=== PATIENT | female | born 1960 | race Caucasian/White ===

== ENCOUNTER 2025-05-17 07:23 | Emergency (ER) | payer MEDICARE, MEDICAID ==
[~2025-05-17] VITALS: Ht 172.7 cm; Wt 57.9 kg
[2025-05-17 07:29] VITALS: TEMP 98.1
--- NOTE | 2025-05-17 07:53 | Physician Documentation ---
History of Present Illness Chief Complaint: Abdominal Pain Stated Complaint: ABD PAIN Time Seen by MD: 07:52 HPI 65-year-old female presenting with left lower quadrant pain She tells me that for the past couple of days she has been having pain in her left lower abdomen. She states it is dull and achy, but sometimes more sharp. She thought she was constipated so she took some prunes then had a loose stool with no improvement. She did feel slightly warm. No definite fevers or chills. No nausea or vomiting. No upper abdominal pain or right-sided abdominal pain. No dysuria or hematuria. No abnormal vaginal symptoms or bleeding. No history of diverticulitis. She has had a fundoplication surgery Medication Reconciliation Allergies: Coded Allergies: ampicillin (Verified Allergy, Unknown, HIVES, 05/17/25) Scheduled Ciprofloxacin HCl (Cipro), 1 TAB PO Q12H Metronidazole* (Flagyl*), 1 TAB PO Q8H Review of Systems Constitutional: Denies: fever Gastrointestinal: Reports: abdominal pain; Denies: vomiting Physical Exam Vital Signs: Temperature: 98.1, Heart Rate: 95, Respiratory Rate: 15, BP: 149/65, Pulse Oximetry: 99, Weight: 57.900 Oxygen Flow Rate: 0 Physical Exam General: This is a pleasant and nontoxic appearing middle-aged woman sitting calmly in bed HEENT: Atraumatic, oropharynx is moist Heart: Regular rate and rhythm, normal-appearing peripheral perfusion Lungs: normal work of breathing, normal oxygen saturation on room air Abdomen: Soft, nondistended. Focal tenderness to palpation of the left lower quadrant only, otherwise nontender to deep palpation in other quadrants, no rebound or guarding Neuro: Alert and oriented Psychiatric: Calm and cooperative with exam Progress Results/Orders Results/Orders Orders - ELLIE STAFFORD MD Urinalysis, Cult If Indicated (05/17/25 07:28) Cbc/Diff (05/17/25 07:28) BMP (05/17/25 07:28) Lipase (05/17/25 07:28) CMP (05/17/25 07:28) Vital Signs 05/17/25 07:29 Temp 98.1 Pulse 95 Resp 15 B/P (MAP) 149/65 Pulse Ox 99 O2 Flow Rate 0 EKG/XRAY/CT/US/VASC/MRI CT : Impression I personally interpreted the CT scan, and this shows diverticulitis in the left lower quadrant Medical Decision Making Additional information obtaine: N/A Findings Not applicable Differential Dx:Considerations: Appendicitis, Bowel obstruction, Cholelithasis, Diverticular disease, GI hemorrhage, Ovarian cyst/torsion, Urinary tract infe ction Additional Comments The patient presents with focal left lower quadrant pain. Per her history and exam I suspect diverticulitis as the most likely cause. She otherwise has no peritoneal findings. She declined pain medication. Labs are overall unremarkable. CT scan shows acute diverticulitis with no complications. She will be treated with antibiotics. There was also an incidental finding on her left kidney. She was given instructions for this and follow up with the primary care doctor for further evaluation. Return precautions given. Departure Time of Disposition: 10:40 Disposition: 01 HOME / SELF CARE / HOMELESS Impression: Primary Impression: Diverticulitis large intestine Condition: Stable Discharge Instructions: Diverticulitis, Incidental Abnormal Radiological Finding Referrals: NO PRIMARY CARE PROVIDER (PCP) Prescriptions Metronidazole* (Flagyl*) 500 Mg Tablet 1 TAB PO Q8H for 7 Days, #21 TAB Prov: ELLIE STAFFORD MD 05/17/25 Ciprofloxacin HCl (Cipro) 500 Mg Tablet 1 TAB PO Q12H for 7 Days, #14 TAB Prov: ELLIE STAFFORD MD 05/17/25 Education Educated: Patient Educated regarding: diagnosis, treatment, need for follow up Signature Scribe Signature: carrie Attestation: ELLIE Pace MD May 17, 2025 07:53
[2025-05-17 08:09] LABS: MEAN PLATELET VOLUME 8.3 FL (7.4-10.4); RED CELL DISTRIBUTION WIDTH 12.9 % (11.5-14.5)
[2025-05-17 08:19] LABS: LEUKOCYTE ESTERASE ,URINE SMALL (Neg); NITRITES, URINE NEGATIVE (Neg); OCCULT BLOOD,URINE TRACE-INTACT (Neg)
[2025-05-17 08:24] LABS: UA COLLECTION TYPE CLN CATCH MIDSTREAM
[2025-05-17 08:28] LABS: CREATININE 0.77 MG/DL (0.40-0.90); TOTAL CARBON DIOXIDE 31.1 MMOL/L (24-32); eCRCL 65 ML/MIN; eGFR 75 ML/MIN
[2025-05-17 08:30] LABS: MUCUS STRANDS FEW /LPF (Neg); SQUAMOUS EPITHELIAL CELL,UR FEW /LPF (FEW)
[2025-05-17] MEDS ORDERED: iohexol 300mg/ml 100ml inj. ONE (09:18)
--- NOTE | 2025-05-17 10:11 | RADIOLOGY REPORT ---
Exam: CT CT ABDOMEN PELVIS W/ IV CONTRAST History: llq pain, change in stool COMPARISON: None Technique: Multidetector spiral CT of the abdomen and pelvis was performed from lung bases to pubic symphysis. Intravenous contrast was administered during this examination. Portal venous imaging was obtained. Axial, coronal and sagittal multiplanar reformats were performed by the technologist on a separate workstation. Radiation Dose : 1. Abdomen/Pelvis: CTDIvol 7.76 mGy, DLP 372.67 mGy*cm. CONTRAST: Type of contrast: Omnipaque 300 Contrast injected: 100 ml Findings: Lung Bases: No acute or significant lung base finding. Normal heart size. No pleural or pericardial effusion. Liver: The liver is normal in size. No focal lesions. Normal hepatic vascular enhancement. Gallbladder and Biliary Tree: Unremarkable Spleen: Unremarkable Pancreas: The pancreas is normal in appearance without focal lesions or abnormal enhancement. Adrenal Glands: Unremarkable Kidneys: No hydronephrosis. Along the medial aspect of the mid to lower pole left kidney there is ill-defined fat with suspected capsule and multiple small curvilinear vessels measuring 6.8 x 3.6 x 3.5 cm. This may be arising from the kidney but is difficult to be certain. Bladder: Unremarkable Bowel: Segmental colonic wall thickening throughout the mid sigmoid colon with a few focally inflamed diverticula. No gross free air. No organized fluid collections. Ascites: Absent Lymphadenopathy: No mesenteric, retroperitoneal or periportal lymphadenopathy. Abdominal Wall and Mesentery: Unremarkable. Vasculature: The visualized abdominal aorta is normal in size and caliber. Abdominal and pelvic vessels demonstrate normal enhancement. Pelvic Organs: Multiple prominent pelvic vessels. Musculoskeletal: No aggressive focal bony lesions, acute fractures or dislocation. IMPRESSION: Acute uncomplicated sigmoid diverticulitis. Given there is segmental wall thickening suggest correlation with colonoscopy if not already performed when the acute illness has subsided. Ill-defined fat density lesion containing multiple prominent vessels closely related to the mid to lower pole left kidney. 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 Suggest a follow-up renal protocol MRI in 1-2 months for better characterization and reassessment. Radiation optimization: All CT scans at this facility use at least one of these dose optimization techniques: automated exposure control mA and/or kV adjustment per patient size (includes targeted exams where dose is matched to clinical indication) or iterative reconstruction.
[2025-05-17] MEDS ORDERED: METR-159 PO (10:43)
[2025-05-17] MEDS ORDERED: CIPR-259 PO (10:43)
[2025-05-17] MEDS: ciprofloxacin 250mg tablet PO ONE (10:54)
[2025-05-17 11:01] VITALS: BP 139/75; PULSE 76; RESP 18; O2SAT 100
== END 2025-05-17 11:03 | disposition home or self-care (01) ==
LOC: ER 07:23
DX: K57.32 Diverticulitis of large intestine without perforation or abscess without bleeding (principal); Z88.1 Allergy status to other antibiotic agents
CPT/HCPCS: 36415; 74177; 80053; 81001; 83690; 85025; 87088; 99285; Q9967